=== PATIENT | male | born 1985 | race African-American/Black ===

== ENCOUNTER 2020-07-12 09:21 | Emergency (ER) | payer MEDICAID ==
[~2020-07-12] VITALS: Ht 170.2 cm; Wt 102.0 kg
[2020-07-12] MEDS ORDERED: ACETAMINOPHEN 650MG/20.3ML UDC PO ONE (10:30)
[2020-07-12] MEDS ORDERED: TRAMADOL 50MG TABLET PO ONE (10:30)
[2020-07-12 10:45] VITALS: BP 141/95
[2020-07-12] MEDS ORDERED: IBUP-2029 MT (12:13)
[2020-07-12] MEDS ORDERED: TRAM-529 MT (12:14)
== END 2020-07-12 12:55 | disposition home or self-care (01) ==
LOC: ER 09:21
DX: M25.511 Pain in right shoulder (principal); Z87.828 Personal history of other (healed) physical injury and trauma
CPT/HCPCS: 73030; 99283; Z7610